=== PATIENT | female | born 1990 | race Caucasian/White ===

== ENCOUNTER 2021-08-24 14:46 | Emergency (ER) | payer SELFPAY ==
[2021-08-24] MEDS ORDERED: Boostrix 0.5 ML (Tdap) VIAL ONE (15:07)
[2021-08-24] MEDS ORDERED: Clindamycin 150 MG CAP ONE (15:07)
== END 2021-08-24 20:21 | disposition home or self-care (01) ==
LOC: BURERS 14:46
DX: S70.362A Insect bite (nonvenomous), left thigh, initial encounter (principal); L08.9 Local infection of the skin and subcutaneous tissue, unspecified; L02.419 Cutaneous abscess of limb, unspecified; Z23 Encounter for immunization; W57.XXXA Bitten or stung by nonvenomous insect and other nonvenomous arthropods, initial encounter
CPT/HCPCS: 87070; 87077; 87186; 87205; 90471; 90715